=== PATIENT | female | born 1990 | race Caucasian/White ===

== ENCOUNTER → 2017-10-20 09:04 | Outpatient (CLI) | payer OTHER, SELFPAY ==
[2017-10-20 10:33] LABS: Thyroid Stimulating Hormone 3.64 uIU/ml (0.358-3.740)
== END ==
PROVIDERS: Visit Provider Internal Medicine
DX: E03.9 Hypothyroidism, unspecified (principal)
CPT/HCPCS: 84443

== ENCOUNTER → 2017-11-22 16:06 | Outpatient (CLI) | payer OTHER, SELFPAY ==
[2017-11-22 16:31] LABS: Basophils # 0.1 K/mm3 (0-0.2); Basophils % 0.9 % (0.1-2.0); Eosinophils # 0.2 K/mm3 (0.0-0.4); Hematocrit 40.8 % (37.0-47.0); Hemoglobin 13.7 g/dL (12.2-16.2); Lymphocytes # 3.4 K/mm3 (0.7-4.5); Mean Corpuscular HGB Conc 33.6 g/dL (31.8-35.4); Mean Corpuscular Hemoglobin 30.2 pg (27.0-31.2); Mean Corpuscular Volume 89.8 fl (81-99); Mean Platelet Volume 7.3 fl (7.4-10.4); Monocytes # 0.4 K/mm3 (0.1-1.0); Monocytes % 3.5 % (1.7-9.3); Neutrophils # 6.3 K/mm3 (1.8-7.8); Neutrophils % 60.5 % (37.0-80.0); Platelet Count 312 K/mm3 (142-424); Red Blood Count 4.54 M/mm3 (4.20-5.40); Red Cell Distribution Width 12.5 % (11.5-17.5); White Blood Count 10.4 K/mm3 (4.8-10.8)
[2017-11-24 15:46] LABS: HIV Screen 4th Generation wRfx Non Reactive (Non Reactive); Hepatitis B Surface Antigen Negative (Negative); Hepatitis C Antibody <0.1 s/co ratio (0.0-0.9); Rubella Antibodies, IgG 8.65 index (Immune >0.99)
[2017-11-24 15:47] LABS: Rapid Plasma Reagin Ab Titer Non Reactive (NonRea<1:1)
== END ==
PROVIDERS: Family Provider Internal Medicine; PCP Internal Medicine; Visit Provider Nurse Practitioner Obstetrics & Gynecology
DX: Z34.90 Encounter for supervision of normal pregnancy, unspecified, unspecified trimester (principal)
CPT/HCPCS: 36415; 85025; 86592; 86703; 86762; 86850; 87340; 87380; G0432

== ENCOUNTER → 2017-12-02 15:16 | Outpatient (CLI) | payer OTHER, SELFPAY ==
--- NOTE | 2017-12-02 15:19 | US_ITS ---
US OB transvaginal COMPARISON: Ultrasound previous 03/01/2015 HISTORY: Early , for dates TECHNIQUE: Transvaginal imaging FINDINGS: There is a single intrauterine gestation with the crown-rump length measuring 2.78 cm equaling 19 weeks and 5 days. The heart rate is 1 50 bpm. The sac is identified measuring 0.62 cm. The amnion and chorion are identified. The left ovary is normal size with couple tiny follicular cysts noted. The right ovary is normal in size and shows homogeneous echogenicity. There is no cul-de-sac fluid noted. IMPRESSION: Early viable intrauterine gestation proximal age 19 weeks and 4 days
== END ==
PROVIDERS: Family Provider Internal Medicine; PCP Internal Medicine; Visit Provider Nurse Practitioner Obstetrics & Gynecology
DX: O26.841 Uterine size-date discrepancy, first trimester (principal)
CPT/HCPCS: 76830

== ENCOUNTER → 2018-02-14 12:32 | Outpatient (CLI) | payer OTHER, SELFPAY ==
--- NOTE | 2018-02-14 | US_ITS ---
US OB /maternal detail: INDICATION: ITS.REASON: ANATOMY SCAN ORDERING PHYSICIAN: Sukhjinder Salgado MD PATIENT AGE: 27 years TECHNIQUE: ultrasound transabdominal scanning. COMPARISON: No previous relevant studies. FINDINGS: Single viable intrauterine gestation. Breech position. Placenta: Anterior placenta grade 1. There is average amount fluid. The cervix appears satisfactory. Closed and measuring 3 cm in length. Complete survey performed and was unremarkable on the submitted images as in PACS. No discrete anomalies identified on survey imaging by technologist. Active fetus. Three-vessel cord with satisfactory umbilical cord insertion. 4- chamber heart noted. Survey of brain & ventricles unremarkable. Face and neck survey unremarkable. Diaphragm and chest views unremarkable. Abdomen: Both kidneys noted and unremarkable. Stomach noted and satisfactory. Spine: Survey of the spine satisfactory with no anomalies identified nor imaged. Both arms and legs noted. Amniotic Fluid: Adequate. Maternal adnexa: No significant findings. Measurements: Average ultrasound age 20w4d. Gestational Age 19w4d. Estimated due date by ultrasound age 1106/30/2018. Estimated weight 349 grams. This is 87th percentile based on the established due date of 07/03/2018 BPD = 21w0d OFD = 21w4d HC = 20w4d AC = 20w4d FL = 20w1d Heart Rate = 149 bpm Cerebellum = 20w4d Humerus = 20w2d HC/AC is 1.18 (1.09-1.26). CI is 76% (70-86%). FL/BPD is 66%. FL/AC is 21%. IMPRESSION: Single live fetus in breech presentation with an average ultrasound age of 20 weeks 4 days. No obvious anomalies. All parameters correlate. Please see above for detail
== END ==
PROVIDERS: Family Provider Internal Medicine; PCP Internal Medicine; Visit Provider Nurse Practitioner Obstetrics & Gynecology
DX: Z36.0 Encounter for antenatal screening for chromosomal anomalies (principal)
CPT/HCPCS: 76811

== ENCOUNTER → 2018-06-07 16:56 | Outpatient (REF) | payer OTHER, SELFPAY | LOC: LAB 16:56 | PROVIDERS: Visit Provider Nurse Practitioner Obstetrics & Gynecology | DX: Z34.90 Encounter for supervision of normal pregnancy, unspecified, unspecified trimester (principal) | CPT/HCPCS: 86403 ==

== ENCOUNTER 2018-07-04 05:06 | Inpatient (IN) ==
[2018-07-04 05:37] LABS: Basophils # 0.1 K/mm3 (0-0.2); Basophils % 0.4 % (0.1-2.0); Eosinophils # 0.2 K/mm3 (0.0-0.4); Eosinophils % 1.8 % (0.1-12.0); Hematocrit 37.9 % (37.0-47.0); Hemoglobin 12.1 g/dL (12.2-16.2); Lymphocytes # 2.3 K/mm3 (0.7-4.5); Lymphocytes % 22.2 K/mm3 (10-50); Mean Corpuscular HGB Conc 31.9 g/dL (31.8-35.4); Mean Corpuscular Hemoglobin 29.4 pg (27.0-31.2); Mean Corpuscular Volume 92.1 fl (81-99); Mean Platelet Volume 8.2 fl (7.4-10.4); Monocytes # 0.6 K/mm3 (0.1-1.0); Monocytes % 5.2 % (1.7-9.3); Neutrophils # 7.4 K/mm3 (1.8-7.8); Neutrophils % 70.3 % (37.0-80.0); Platelet Count 212 K/mm3 (142-424); Red Blood Count 4.11 M/mm3 (4.20-5.40); Red Cell Distribution Width 13.6 % (11.5-17.5); White Blood Count 10.5 K/mm3 (4.8-10.8)
--- NOTE | 2018-07-04 09:22 | Progress Note ---
Labor Note - Subjective: Date: 07/04/18 Time: 07:20 regular contraction - Objective: NST:: Reactive Contractions:: every 2-3 minutes Cervical Dilation:: 4 Effacement:: 90% Station: -1 Membranes: artificially ruptured - Fetus: Monitoring?: Yes monitoring type:: Internal and External Comment:: I applied a scalp clip - Assessment: Labor progressing?: Yes Cephalopelvic disproportion?: No Patient Problems: All Active Problems (Acute) - Plan: Anesthesia for epidural?: Yes Continue to labor down?: Yes Plan for ?: No Continue to monitor?: Yes Start pushing?: No
--- NOTE | 2018-07-04 09:23 | Progress Note ---
Labor Note - Subjective: Date: 07/04/18 Time: 09:22 regular contraction - Objective: NST:: Reactive Contractions:: every 2-3 minutes Cervical Dilation:: 5-6 Effacement:: 90% Station: -1 Membranes: artificially ruptured - Fetus: Monitoring?: Yes monitoring type:: Internal and External - Assessment: Labor progressing?: Yes Cephalopelvic disproportion?: No Patient Problems: All Active Problems (Acute) - Plan: Anesthesia for epidural?: Yes Continue to labor down?: Yes Plan for ?: No Continue to monitor?: Yes Start pushing?: No
--- NOTE | 2018-07-04 09:24 | History & Physical Report ---
OB - H&P: HPI Antepartum - History of Present Illness Chief complaint: Postdates History of present illness: She is a 28-year-old 2 para 1 at 40+ weeks gestational age. She was found to be 3-4 cm in my office and as result of that she was offered augmentation of labor. - History of Present Criteria for establishing EDC:: LMP confirmed by 1st trimester US care: good care Ultrasounds: normal 1st trimester US, normal mid trimester US Obstetrical complications: none Medical complications: none [facility] History I have reviewed the patient's past medical history: Yes Medical History: Denies:: Anxiety, Depression, Diabetes Mellitus Type 1, Hyperlipidemia, Hypertension, Migraine, MRSA, Seizures Laterality Cases: Bilateral: Tonsillectomy Other Surgeries: No: Amputation: No Fractures: No - *Social History Smoking Status: Never smoker Alcohol Intake: never Substance Use Type: denies use - Psychiatric History Pschychiatric History:: Denies:: Anxiety, Depression *Family Hx:: Cancer, Diabetes, Heart Attack, Thyroid Disorder, Stroke, Hypertension, Hyperlipidemia, Coronary Artery Disease Para: 1 Review of Systems - Review of Systems Review of systems:: pertinent systems reviewed and negative unless documented below Meds Home Medications Medication Instructions Recorded Confirmed Type levothyroxine 50 mcg tablet 50 mcg PO ONCE 11/22/17 07/04/18 History vitamin-ferrous sulfate 1 tab PO DAILY 11/22/17 07/04/18 History 27 mg iron-folic acid 0.8 mg tablet ferrous sulfate 325 mg (65 mg 325 mg PO DAILY tab 03/21/18 07/04/18 History iron) tablet Allergies Allergy/AdvReac Type Severity Reaction Status Date / Time No Known Allergies Allergy Verified 06/28/18 15:05 OB - H&P: Exam - Constitutional no acute distress - Routine HEENT Exam Head: Present: normocephalic Eye: Present: EOMI, PERRL ENT: Present: mucous membranes moist - Routine Neck Exam Present: supple, full ROM - Routine Respiratory Exam Absent: accessory muscle use (good air entry bilaterally), respiratory distress, wheezes, crackles - Routine Cardiovascular Exam Present: RRR. Absent: murmur - Routine Abdominal Exam Present: soft, normoactive bowel sounds. Absent: tenderness, distended, guarding - Routine Rectal Exam Patient deferred: visual exam, digital exam - Routine Exam Patient deferred: external exam, groin exam, perineal exam - Routine Extremities Exam Present: full ROM. Absent: cyanosis, edema - Routine Skin Exam Present: intact. Absent: cyanosis - Routine Neurological Exam Present: alert, oriented X3 - Routine Psychiatric Exam Present: normal affect OB - Results - Labs Labs: Short CBC 07/04/18 Range/Units 05:30 WBC 10.5 (4.8-10.8) K/mm3 Hgb 12.1 L (12.2-16.2) g/dL Hct 37.9 (37.0-47.0) % Plt Count 212 (142-424) K/mm3 OB - A/P Antepartum (1) Normal delivery Current visit: Yes Status: Acute (2) Post-term , 40-42 weeks of gestation Current visit: Yes Status: Acute - Additional Plan Planning to breastfeed?: Yes Plan: other Additional Information:: She is postdates and we have started her on IV oxytocin and had her membranes ruptured. We expect a vaginal delivery.
[2018-07-04 09:38] LABS: Microscopic, Urine URINE MICROSCOPIC (MICROSCOPIC)
[2018-07-04 09:50] LABS: Appearance,Urine CLEAR (Clear); Bilirubin,Urine Negative (Negative); Blood, Urine Negative (Negative); Color,Urine YELLOW (Yellow); Glucose,Urine (UA) Negative (Negative); Ketones,Urine Negative (Negative); Leukocyte Esterase,Urine Negative (Negative); Protein,Urine Negative (Negative); Urobilinogen,Urine 0.2 EU/dl (0.2)
[2018-07-04 09:56] LABS: Bacteria,Urine Trace /lpf; Squamous Epithelial Cell,Urine Occasional #/hpf (0-5)
--- NOTE | 2018-07-04 11:40 | Progress Note ---
[facility] Anesthesia Checklist - Patient Identification Patient Identification: Arm Band, Verbal (Name & ) - Structural Data Admitted From: Home Planned Operative Procedure/s: Labor Epidural Consent for Planned Operative Procedure(s) Verified: Yes Verified Documents: Surgical Consent, History and Physical - NPO Status Verified Time NPO: 00:00 - Chart Verification Results Verified: CBC - Additional verifications Patient : Yes Anesthesia Reactions: No - Airway Assessment C-Spine Mobility Assessed: Yes TMJ Mobility Assessed: Yes Dentition: Good Dentition - Neurological Assessment Level of Consciousness: Awake Hx Seizures: No Numbness or tingling in extremities: No - Anesthesia Plan Anesthesia Risk discussed: Yes Anesthesia Plan: Verified ASA Class: II Anesthesia Type: Epidural [facility] History I have reviewed the patient's past medical history: Yes Medical History: Denies:: Anxiety, Depression, Diabetes Mellitus Type 1, Hyperlipidemia, Hypertension, Migraine, MRSA, Seizures Laterality Cases: Bilateral: Tonsillectomy Other Surgeries: No: Amputation: No Fractures: No - *Social History Smoking Status: Never smoker Alcohol Intake: never Substance Use Type: denies use - Psychiatric History Pschychiatric History:: Denies:: Anxiety, Depression *Family Hx:: Cancer, Diabetes, Heart Attack, Thyroid Disorder, Stroke, Hypertension, Hyperlipidemia, Coronary Artery Disease Para: 1
--- NOTE | 2018-07-04 12:19 | Procedure Note ---
- Delivery Note Delivery Date:: 07/04/18 Delivery Time:: 11:58 Anesthesia Type: Epidural Was labor medically induced?: No Infant delivered prior to 39 weeks?: No Gender: Female at 1 minute: 9 at 5 minutes: 9 LAC or MLE?: LAC (Second-degree perineal laceration) Delivery Procedure:: She is a 28-year-old 2 para 1 at 40 and 1 weeks gestational age. She was having a few contractions and was found to be 3-4 cm dilated my office. As result of that we elected to augment her labor postdates. She was started on IV oxytocin and had her membranes ruptured. Under labor epidural she progressed to full dilation and delivered spontaneously a live born female child at 11:58 AM on the morning of July 04, 2018. On deliver the head the rest the body rapidly delivered. There was a cord wrapped around the neck and this was easily reduced. We allowed the cord to continue to palpate and the baby cried spontaneously. The oropharynx and nasopharynx were bulb suctioned. We then doubly clamped the cord and cut the cord. The baby was then placed on the mother's abdomen for further care. The nurses assigned Apgars of 9 at 1 minute and 9 at 5 minutes. We then obtained cord blood as well as cord pH. Using gentle traction on the cord and countertraction on the fundus I was able to easily deliver the placenta intact. Had a normal three-vessel cord. She had a second-degree perineal laceration is repaired with interrupted 3-0 Vicryl Rapide suture to the superficial tissues and 2-0 Vicryl suture to the deep tissues. The sphincter was intact. She has B+ blood, she is rubella immune and was group B Streptococcus negative. She plans to breast-feed. Her oyster cultivator is Dr. Hurd. Her estimated blood loss was approximately 500 cc. Placental Delivery Description: Spontaneous
[2018-07-05 06:09] LABS: Hematocrit 28.8 % (37.0-47.0); Hemoglobin 9.4 g/dL (12.2-16.2)
--- NOTE | 2018-07-05 07:57 | Discharge Summary ---
General - General Admission date:: 07/04/18 Discharge date: 07/05/18 HPI HPI: She is a 28-year-old 2 now para 2 who is 40 and 1 weeks gestational age. She was 3-4 cm in my office and as result of that we elected to augment her labor. Hospital Course Hospital Course: She was started on IV oxytocin and under labor dural progressed to full dilation. She delivered spontaneously a live born female child at 11:58 AM on the morning of July 04, 2018. Baby weighed 8 pounds 3 ounces and was 20 inches long. She had Apgars of 9 at 1 minute and 9 at 5 minutes She has done well and has remained afebrile throughout her hospitalization. She is eating and drinking and ambulating. She is breast- feeding. She had a small second-degree perineal laceration. She has B+ blood, she is rubella immune and was group B Streptococcus negative. Her wire rope sales representative is Dr. Hurd. She is discharged home to follow-up with me in approximately 2 weeks time. She will continue with her vitamins and iron. She was given the usual instructions with respect to limiting her activity, driving and sexual activity. She is just taking [id number] analgesics. Her condition on discharge is stable. Rhogam Administration: Not Indicated Objective no acute distress Results Labs on day of discharge: Labs from last 24 hours 07/05/18 07/04/18 07/04/18 06:00 12:08 09:00 Hgb 9.4 L Hct 28.8 L Cord ABG pH 7.37 Urine Color Yellow Urine Appearance Clear Urine pH 8.0 Ur Specific Buckner 1.010 Urine Protein Negative Urine Glucose (UA) Negative Urine Ketones Negative Urine Blood Negative Urine Nitrate Negative Urine Bilirubin Negative Urine Urobilinogen 0.2 Ur Leukocyte Esterase Negative Ur Squamous Epith Cells Occasional Urine Bacteria Trace DS: Diagnosis - Discharge Diagnosis (1) Normal delivery Status: Acute (2) Post-term , 40-42 weeks of gestation Status: Acute Discharge Plan - Patient Discharge Instructions ACTIVITY: No heavy lifting DIET: continue same diet Patient Instructions: Depression, Hemorrhage, Post Discharge Instructions - Follow up Plan Disposition: Home, Self-Prison Medications: Home Medications Medication Instructions Recorded Confirmed Type levothyroxine 50 mcg tablet 50 mcg PO DAILY 11/22/17 07/04/18 History vitamin-ferrous sulfate 1 tab PO DAILY 11/22/17 07/04/18 History 27 mg iron-folic acid 0.8 mg tablet ferrous sulfate 325 mg (65 mg 325 mg PO DAILY tab 03/21/18 07/04/18 History iron) tablet Prescriptions/Medication Reconciliation: Continue ferrous sulfate 325 mg (65 mg iron) tablet 325 mg PO DAILY tab levothyroxine 50 mcg tablet 50 mcg PO DAILY No Action vitamin-ferrous sulfate 27 mg iron-folic acid 0.8 mg tablet 1 tab PO DAILY
== END 2018-07-05 17:45 | disposition home or self-care (01) ==
LOC: OB 05:06
PROVIDERS: ADMIT Nurse Practitioner Obstetrics & Gynecology; ATTEND Nurse Practitioner Obstetrics & Gynecology

== ENCOUNTER → 2018-07-25 16:52 | Outpatient (CLI) | payer OTHER, SELFPAY ==
[2018-07-25 17:35] LABS: Free T4 (Free Thyroxine) 1.01 ng/dl (0.76-1.46); Thyroid Stimulating Hormone 3.13 uIU/ml (0.358-3.740)
== END ==
PROVIDERS: Visit Provider Internal Medicine
DX: J02.9 Acute pharyngitis, unspecified (principal); E03.9 Hypothyroidism, unspecified
CPT/HCPCS: 84439; 84443

== ENCOUNTER → 2019-06-15 12:50 | Outpatient (CLI) | payer OTHER, SELFPAY ==
[2019-06-15 13:51] LABS: Thyroid Stimulating Hormone 3.32 uIU/ml (0.358-3.740)
== END ==
PROVIDERS: Visit Provider Internal Medicine
DX: E03.9 Hypothyroidism, unspecified (principal)
CPT/HCPCS: 36415; 84443

== ENCOUNTER → 2020-04-18 14:22 | Outpatient (CLI) | payer OTHER, SELFPAY ==
[2020-04-18 16:53] LABS: Coronavirus 19 IgG Antibody Positive (Negative); Coronavirus 19 IgM Antibody Negative (Negative)
== END ==
PROVIDERS: Visit Provider Internal Medicine
DX: Z20.828 Contact with and (suspected) exposure to other viral communicable diseases (principal); U07.1 COVID-19
CPT/HCPCS: 86328

== ENCOUNTER → 2021-01-15 11:11 | Outpatient (CLI) | payer OTHER, SELFPAY ==
[2021-01-15 12:56] LABS: Thyroid Stimulating Hormone 2.74 uIU/mL (0.465-4.68)
== END ==
PROVIDERS: Visit Provider Internal Medicine
DX: E03.9 Hypothyroidism, unspecified (principal)
CPT/HCPCS: 84443

== ENCOUNTER → 2021-05-02 15:17 | Outpatient (CLI) | payer OTHER, SELFPAY ==
[2021-05-02 15:19] LABS: Coronavirus 19, PCR Not Detected (NotDetected); Influenza A, PCR Not Detected (NotDetected); Influenza B, PCR Not Detected (NotDetected)
== END ==
PROVIDERS: Visit Provider Internal Medicine
DX: Z20.822 Contact with and (suspected) exposure to COVID-19 (principal)
CPT/HCPCS: U0003

== ENCOUNTER → 2021-07-14 14:28 | Outpatient (CLI) | payer OTHER, SELFPAY ==
[2021-07-14 14:31] LABS: Coronavirus 19, PCR Not Detected (NotDetected); Influenza A, PCR Not Detected (NotDetected); Influenza B, PCR Not Detected (NotDetected)
== END ==
PROVIDERS: Visit Provider Internal Medicine
DX: Z20.822 Contact with and (suspected) exposure to COVID-19 (principal)
CPT/HCPCS: C9803; U0003; U0005

== ENCOUNTER → 2021-12-03 09:58 | Outpatient (CLI) | payer OTHER, SELFPAY ==
[2021-12-03 10:22] LABS: Coronavirus 19, PCR Not Detected (NotDetected); Influenza B, PCR Not Detected (NotDetected)
[2021-12-03 10:56] LABS: Influenza A, PCR Detected (NotDetected)
== END ==
PROVIDERS: PCP Internal Medicine; Visit Provider Internal Medicine
DX: Z11.52 Encounter for screening for COVID-19 (principal)
CPT/HCPCS: C9803; U0003; U0005

== ENCOUNTER 2021-12-05 09:58 | Emergency (ER) | payer OTHER, SELFPAY ==
[2021-12-05 10:37] VITALS: BP 123/74; PULSE 83; RESP 18; TEMP 37.1; O2SAT 98; BMI 22.1
--- NOTE | 2021-12-05 10:52 | HMH.EDUTC ---
[facility] [place] Disposition Clinical Impression: Influenza Disposition: Home, Self-Care Condition on Discharge: Good Instructions: Influenza, DI for Influenza -- Adult, Sore Throat Additional Instructions: ? Continue Tamiflu today if you are going to take it. Discussed risk and possible benefits. ?? Lots of rest ? Increase Fluids water, Gatorade, powerade, pedialyte,if infant/toddler/child ? Alternate Tylenol and / or ibuprofen as discussed for fever, aches, chills Follow up IMMEDIATELY with your family doctor for new or worsening Symptoms OR no noticeable improvement over the next 48-72 hours, 911 for difficulty or breathing ? You or your child area contagious until no fever, aches, chills for 24 hours with medication for symptoms ? Help Prevent the spread of influenza: ? Wash your hands often. Use soap and water. Wash your hands after you use the bathroom, change a child's diapers, or sneeze. Wash your hands before you prepare or eat food. Use gel hand cleanser that has 60% alcohol, when soap and water are not available. Do not touch your eyes, nose, or mouth unless you have washed your hands first. ? Cover your mouth when you sneeze or cough. Cough into a tissue or the bend of your arm. If you use a tissue, throw it away immediately and wash your hands. ? Clean shared items with a germ-killing steam cleaner. Clean table surfaces, doorknobs, and light switches. Do not share towels, silverware, and dishes with people who are sick. Wash bed sheets, towels, silverware, and dishes with soap and water. ? Wear a mask over your mouth and nose if you are sick. The face mask may help protect others from becoming infected with the flu. Wear the mask when in common areas of your home or if you seek care with a healthcare provider. ? Stay away from others if you are sick. Stay at home until 24 hours after your fever and symptoms are gone. Prescriptions: Brompheniramine/Pseudoephed/Dm [Bromfed Dm Cough Syrup] 5 - 10 ml PO Q4-6H PRN #200 ml PRN Reason: Cough Transmission Status: Pending to [facility] #[id number] Referrals: Shahid Wahl [Primary Care Provider] - As needed Time of Disposition: 11:26 Medical Decision Making - Laurent Inquiry Pt receiving controlled substance: No Laurent was queried for this patient: No Vital Signs: 12/05/21 10:37 Temperature 98.7 F Temperature Source Oral Pulse Rate [Left] 83 Respiratory Rate 18 Blood Pressure [Right Arm] 123/74 Blood Pressure Mean [Right Arm] 90 02 Sat by Pulse Oximetry 98 - Lab Data Lab results reviewed: Yes: I reviewed the patient's lab results. Orders (Tests/Meds): ORDERS Category Date Time Status Rapid Strep Scrn Group A [Strep Scrn Group A (Rapid)] Lab 12/05/21 10:55 Received Stat [facility] [place] HPI - General Stated complaint: positive for flu Time Seen by Provider: 12/05/21 10:52 Mode of Arrival: Ambulatory Source of Information: Patient Limitations: No Limitations Description of Symptoms (Recalled from Triage Doc. by RN): pt tested positive for flu A on 11/30. pt c/o a R ear ache, worsening sore throat and a cough with no improvement. pt tested negative for covid on 12/03. HEENT Symptoms (Recalled from RN notes): Yes Resp Symptoms (Recalled from RN notes): No Skin Symptoms (Recalled from RN notes): No MS Symptoms (Recalled from RN notes): No Functional Status (Recalled from RN notes): wnl - History of Present Illness Provider Complaint: Latrellt states that she was dx with flu a couple days ago but since then she has been having sore throat and cough and pain in her right ear States that she was worried that she may have caught something else so she came in to get checked - Related Data Home Medications Medication Instructions Recorded Confirmed Levothyroxine Sodium 75 mcg PO DAILY 10/12/19 10/12/19 [Levothyroxine 75mcg (0.075mg) Tab] Previous Rx's Medication Instructions Recorded Azithromycin [Z-Adi 250mg Tab*] 250 mg PO UD DOSE PK #6 tab 10/12/19 Fl[facility]
[2021-12-05 11:22] LABS: Strep Scrn Group A (Rapid) Negative (Negative)
[2021-12-05 11:42] VITALS: BP 123/74; PULSE 83; RESP 18; TEMP 37.1
== END 2021-12-05 11:43 | disposition home or self-care (01) ==
PROVIDERS: Emergency Provider Nurse Practitioner; PCP Internal Medicine
DX: J10.1 Influenza due to other identified influenza virus with other respiratory manifestations (principal)
CPT/HCPCS: 87430; 99212; G0463

== ENCOUNTER → 2022-01-06 07:35 | Outpatient (CLI) | payer SELFPAY | PROVIDERS: Visit Provider Nurse Practitioner | DX: Z11.52 Encounter for screening for COVID-19 (principal) ==

== ENCOUNTER → 2022-09-01 09:10 | Outpatient (CLI) | payer OTHER, SELFPAY ==
[2022-09-01 09:28] LABS: Basophils # 0.1 K/mm3 (0-0.2); Basophils % 1.5 % (0.1-2.0); Eosinophils # 0.4 K/mm3 (0.0-0.4); Eosinophils % 5.1 % (0.1-12.0); Hematocrit 43.1 % (37.0-47.0); Hemoglobin 13.5 g/dL (12.2-16.2); Lymphocytes # 2.8 K/mm3 (0.7-4.5); Lymphocytes % 34.9 % (10-50); Mean Corpuscular HGB Conc 31.4 g/dL (31.8-35.4); Mean Corpuscular Hemoglobin 31.2 pg (27.0-31.2); Mean Corpuscular Volume 99.3 fl (81-99); Mean Platelet Volume 7.8 fl (7.4-10.4); Monocytes # 0.4 K/mm3 (0.1-1.0); Monocytes % 4.6 % (1.7-9.3); Neutrophils # 4.3 K/mm3 (1.8-7.8); Neutrophils % 53.9 % (37.0-80.0); Platelet Count 585 K/mm3 (142-424); Red Blood Count 4.34 M/mm3 (4.20-5.40); Red Cell Distribution Width 13.2 % (11.5-17.5)
[2022-09-01 10:17] LABS: Chloride 101 mmol/L (98-107); Potassium 4.6 mmoL/L (3.5-5.1); Sodium 138 mmol/L (136-145)
[2022-09-01 10:19] LABS: Alanine Aminotransferase 11 U/L (12-78); Alkaline Phosphatase 54 U/L (38-126); Anion Gap 11.6 mEq/L (5-15); Aspartate Amino Transferase 21 U/L (14-36); Bilirubin,Total 0.6 mg/dl (0.2-1.3); Blood Urea Nitrogen 13 mg/dl (7-17); Carbon Dioxide 30 mmol/L (22.0-30.0); Estimated Glomerular Filt Rate 72 ml/min (>60); GFR (African American) 87 ML/MIN (>60)
[2022-09-01 10:20] LABS: Albumin Level 4.3 g/dl (3.5-5.0); Calcium 9.2 mg/dl (8.4-10.2); Globulin 2.2 g/dL (1.3-3.2); Glucose 92 mg/dl (74-100); Total Protein,Serum 6.5 g/dl (6.3-8.2)
[2022-09-01 10:50] LABS: Thyroid Stimulating Hormone 2.38 uIU/mL (0.465-4.68)
== END ==
PROVIDERS: Nurse Practitioner Family; PCP Internal Medicine Adolescent Medicine; Visit Provider Orthopaedic Surgery
DX: R79.9 Abnormal finding of blood chemistry, unspecified (principal)
CPT/HCPCS: 36415; 80053; 84443; 85025

== ENCOUNTER → 2023-02-05 07:29 | Outpatient (CLI) | payer OTHER, SELFPAY ==
[2023-02-05 09:13] LABS: Basophils # 0.1 K/mm3 (0-0.2); Basophils % 0.8 % (0.1-2.0); Eosinophils # 0.4 K/mm3 (0.0-0.4); Eosinophils % 4.2 % (0.1-12.0); Hematocrit 41.2 % (37.0-47.0); Lymphocytes # 3.4 K/mm3 (0.7-4.5); Lymphocytes % 41.6 % (10-50); Mean Corpuscular HGB Conc 31.6 g/dL (31.8-35.4); Mean Corpuscular Hemoglobin 30.6 pg (27.0-31.2); Mean Corpuscular Volume 96.6 fl (81-99); Monocytes # 0.5 K/mm3 (0.1-1.0); Monocytes % 6.2 % (1.7-9.3); Neutrophils # 3.8 K/mm3 (1.8-7.8); Neutrophils % 47.1 % (37.0-80.0); Platelet Count 513 K/mm3 (142-424); Red Blood Count 4.26 M/mm3 (4.20-5.40); Red Cell Distribution Width 12.5 % (11.5-17.5); White Blood Count 8.1 K/mm3 (4.8-10.8)
[2023-02-05 09:46] LABS: Alanine Aminotransferase 13 U/L (12-78); Albumin Level 4.3 g/dl (3.5-5.0); Albumin/Globulin Ratio 1.9 (1.1-1.8); Alkaline Phosphatase 50 U/L (38-126); Anion Gap 12.5 mEq/L (5-15); Aspartate Amino Transferase 25 U/L (14-36); Bilirubin,Total 0.5 mg/dl (0.2-1.3); Blood Urea Nitrogen 16 mg/dl (7-17); Carbon Dioxide 30 mmol/L (22.0-30.0); Chloride 101 mmol/L (98-107); Chol/HDL Ratio 2.1 (1-3.5); Cholesterol 155 mg/dl (140-200); Estimated Glomerular Filt Rate 83 ml/min (>60); GFR (African American) 100 ML/MIN (>60); Globulin 2.3 g/dL (1.3-3.2); Glucose 91 mg/dl (74-100); HDL Cholesterol 74 mg/dl (40-60); Potassium 4.5 mmoL/L (3.5-5.1); Sodium 139 mmol/L (136-145); Total Protein,Serum 6.6 g/dl (6.3-8.2); Triglycerides 82 mg/dl (30-150); VLDL Cholesterol 16 mg/dL (0-40)
[2023-02-05 09:57] LABS: Direct LDL Cholesterol 62.35 mg/dL (100-129)
[2023-02-05 10:05] LABS: 25-OH Vitamin D, Total 41.6 ng/mL (30-100)
[2023-02-05 10:16] LABS: Thyroid Stimulating Hormone 1.48 uIU/mL (0.465-4.68)
[2023-02-05 10:35] LABS: Vitamin B12 565 pg/mL (239-931)
== END ==
PROVIDERS: PCP Nurse Practitioner Family; Visit Provider Nurse Practitioner Family
DX: Z00.00 Encounter for general adult medical examination without abnormal findings (principal); E03.9 Hypothyroidism, unspecified; R53.83 Other fatigue; Q89.01 Asplenia (congenital)
CPT/HCPCS: 36415; 80053; 80061; 82306; 82607; 84443; 85025

== ENCOUNTER 2025-02-12 07:55 | Outpatient (CLI) | payer OTHER, SELFPAY ==
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
--- OUTSIDE RECORDS SUMMARY | 2025-02-12 07:58 | XMS_ITS | Encounter Summary ---
Author Organization [facility] Address [address] [place] [address] Care Team Providers Care Women'S Lacrosse Coach Name Role Phone Shahid Wahl MD Primary Care Provider [phone] Odell Carpio MD Primary Care Provider [phone] Encounter Details Date Type Department Care Team (Late st Contact Info) Description 02/18/2022 Lab Requisition [facility] [address] [place] [address] Shena Gutierres MD [address] [facility] 7th [facility] [address] [place] [address] Encounter for general adult medical examination without abnormal findings Social History Tobacco Use Types Packs/Day Years Used Date Smoking Tobacco: Never Assessed Comments Unknown Sex and Gender Information Value Date Recorded Sex Assigned at Not on file Legal Sex Female 2:12 PM EDT Gender Identity Not on file Sexual Orientation Not on file COVID-19 Exposure Response Date Recorded In the last 10 days, have yo u been in contact with someone who was confirmed or suspected to have Coronavirus/COVID-19? No / Unsure 02/21/2022 4:48 PM EDT documented as of this encounter Functional Status * Calculated C-SSRS Risk Score (Lifetime/Recent) Answer Date of Assessment Author No Risk Indicated 02/21/2022 8:00 PM EDT Ly Polo RN * Question Answer Date of Assessment Author 1. Wish to be (Past 1 Month) No 022 8:00 PM EDT Ly Polo RN 2. Non-Specific Active Suici oscar Thoughts (Past 1 Month) No 02/21/2022 8:00 PM EDT Ly Polo, RN 6. Suicidal Behavior (Lifetime) No 8:00 PM EDT Ly Polo RN documented as of this encounter Plan of Treatment Not on file documented as of this encounter Procedures Procedure Name Priority Date/Time Associated Diagnosis Comments MULTI DRUG RESISTANCE TEST Routine 02/18/2022 7:00 AM EDT Encounter for general adult medical examination without abnormal findings documented in this encounter Results * Multi Drug Resistance Test (02/18/2022 7:00 AM EDT) Culture No growth at day 1 02/19/2022 2:51 PM EDT [facility] Swab (Nares and Keysha Rectal) 02/18/2022 7:00 AM EDT 02/18/2022 7:04 AM EDT us Shena Sweet MD LAB MICROBIOLOGY - GENERAL ORDERABLES Final Result [facility] [address] [place] [address] documented in this encounter Visit Diagnoses Diagnosis Encounter for general adult medical examination without abnormal findings documented in this encounter Care Teams Women'S Lacrosse Coach Relationship Specialty Start Date End Date Shahid Wahl MD [address] [place] [address] PCP - General 01/15/22 03/16/22 Odell Carpio MD [address] [place] [address] PCP - General Internal Medicine 03/17/22 documented as of this encounter
[2025-02-12 08:13] LABS: Basophils # 0.1 K/mm3 (0-0.2); Basophils % 1.4 % (0.1-2.0); Eosinophils # 0.4 Kmm3 (0.0-0.4); Eosinophils % 3.7 % (0.1-12.0); Hemoglobin 13.1 g/dL (12.2-16.2); Immature Granulocytes # 0.05 10^3uL; Immature Granulocytes % 0.5 %; Lymphocytes % 30.3 % (10-50); Mean Corpuscular HGB Conc 32.8 g/dL (31.8-35.4); Mean Corpuscular Volume 94.8 fl (81-99); Mean Platelet Volume 9.3 fl (7.4-10.4); Monocytes # 0.8 K/mm3 (0.1-1.0); Monocytes % 8.1 % (1.7-9.3); Neutrophils # 5.5 K/mm3 (1.8-7.8); Nucleated Red Blood Cells # 0 10^3/uL; Nucleated Red Blood Cells % 0 %; Platelet Count 473 K/mm3 (142-424); Red Blood Count 4.22 M/mm3 (4.20-5.40); Red Cell Distribution Width 12.9 % (11.5-17.5); Red Cell Distribution Width-SD 44.5 fL; White Blood Count 9.9 K/mm3 (4.8-10.8)
[2025-02-12 09:39] LABS: Albumin Level 4.1 g/dl (3.5-5.0); Chloride 103 mmol/L (98-107); Sodium 137 mmol/L (136-145)
[2025-02-12 09:40] LABS: Potassium 4.7 mmoL/L (3.5-5.1)
[2025-02-12 09:42] LABS: Alanine Aminotransferase 10 U/L (12-78); Albumin/Globulin Ratio 1.8 (1.1-1.8); Anion Gap 8.7 mEq/L (5-15); Aspartate Amino Transferase 21 U/L (14-36); Blood Urea Nitrogen 14 mg/dl (7-17); Carbon Dioxide 30 mmol/L (22.0-30.0); Estimated Glomerular Filt Rate 82 ml/min (>60); GFR (African American) 99 ML/MIN (>60); Globulin 2.3 g/dL (1.3-3.2); Total Protein,Serum 6.4 g/dl (6.3-8.2)
[2025-02-12 09:43] LABS: Alkaline Phosphatase 52 U/L (38-126); Bilirubin,Total 0.5 mg/dl (0.2-1.3); Calcium 9.2 mg/dl (8.4-10.2); Chol/HDL Ratio 2.3 (1-3.5); Cholesterol 180 mg/dl (140-200); Glucose 90 mg/dl (74-100); HDL Cholesterol 80 mg/dl (40-60); Triglycerides 75 mg/dl (30-150); VLDL Cholesterol 15 mg/dL (0-40)
[2025-02-12 09:54] LABS: Direct LDL Cholesterol 67.87 mg/dL (100-129)
[2025-02-12 10:12] LABS: Thyroid Stimulating Hormone 3.89 uIU/mL (0.465-4.68)
== END 2025-02-12 23:59 | disposition home or self-care (01) ==
LOC: LAB 07:56
PROVIDERS: PCP Nurse Practitioner Family; Visit Provider Nurse Practitioner Family
DX: Z00.00 Encounter for general adult medical examination without abnormal findings (principal); E03.9 Hypothyroidism, unspecified; Q89.01 Asplenia (congenital)
CPT/HCPCS: 36415; 80053; 80061; 84443; 85025

== ENCOUNTER 2025-08-25 09:23 | Outpatient (CLI) | payer OTHER, SELFPAY ==
[2025-08-25 20:19] LABS: Coronavirus 19, PCR Not Detected (NotDetected); Influenza A, PCR Not Detected (NotDetected); Influenza B, PCR Not Detected (NotDetected)
--- OUTSIDE RECORDS SUMMARY | 2025-08-27 09:36 | XMS_ITS | Encounter Summary ---
Author Organization [facility] Address [address] [place] [address] Care Team Providers Care Equipment Operat0R Name Role Phone Shahid Wahl MD Primary Care Provider [phone] Odell Carpio MD Primary Care Provider [phone] Encounter Details Date Type Department Care Team (Late st Contact Info) Description 02/18/2022 Lab Requisition [facility] [address] [place] [address] Shena Gutierres MD [address] [facility] 7th [facility] [address] [place] [address] Encounter for general adult medical [...] PM EDT documented as of this encounter Plan of [...] at day 1 02/19/2022 2:51 PM EDT HEALTH[facility]ARE [facility] Swab (Nares and Keysha Rectal) 02/18/2022 7:00 AM EDT 02/18/2022 7:04 AM EDT Shena Sweet MD LAB MICROBIOLOGY - GENERAL ORDERABLES Final Result Performing Organization Address City/State/[facility] Co de Phone Number HEALTHCARE LAB [address] [place] [address] documented in this encounter Visit Diagnoses Diagnosis Encounter for general adult medical examination without abnormal findings documented in this encounter Care Teams Equipment Operat0R Relationship Specialty Start Date End Date Shahid Wahl MD [address] [place], [place] [address] [address] [place] [address] PCP - General 01/15/22 03/16/22 Odell Carpio MD [facility] [address] PCP - General Internal Medicine 03/17/22 documented as of this encounter
--- OUTSIDE RECORDS SUMMARY | 2025-08-27 09:36 | XMS_ITS | Clinical Summary ---
Author Organization [facility] Address [address] [place] [address] Care Team Providers Care Security Operations Manager Name Role Phone Odell Carpio MD Primary Care Provider [phone] Allergies No known active allergies Medications Multiple [...] (02/15/2022): Added automatically from request for surgery [id number] Immunizations Immunization Administration Dates Next Due Hib [...] Health Maintenance Due Date Last Done Comments [facility]-Depression Screening 1989 [facility]-Infant/Child/Adol SDOH Screenings 1989 [facility]-Varicella Vaccines (1 of 2 - 13+ 2-dose series) 2002 [facility]- SDOH Screenings 2007 [facility]-Adult SDOH Screenings 2007 [facility]-DTaP,Tdap,and Td Vaccine s (1 - Tdap) 2008 [facility]-Hepatitis B Vaccines (1 of 3 - 19+ 3-dose series) 2008 [facility]-Pap Smear 2010 [facility]-Cervical Cancer Screening 2019 [facility]-HPV/Cotest 2019 [id number] Vaccine (1 - 20 25-26 season) 2025 [facility]-Influenza Vaccine (#1) 2025 [facility]-Zoster Vaccines (1 of 2) 2039 [facility]-HIB Vaccines Aged Out 02/18/2022 No longer e ligible based on patient's age to complete this topic [facility]-Pneumococcal Vaccine: Pediatrics (0 to 5 Years) and At-Risk Patients (6 to 49 Years) Aged Out 02/18/2022 No long er eligible based on patient's age to complete this topic HPV Vaccines (No Doses Required) Completed [facility]-Hepatitis A Vaccines Aged Out No longer eligible based on patient's age to complete this topic [facility]-IPV Vaccines Aged Out No longer e ligible based on patient's age to complete this topic [facility]-Rotavirus Vaccines Aged Out No lo nger eligible based on patient's age to complete this topic Medical Devices Implanted Type Area Health Assistant Device Identifier Shelf Expiration Date Model / Serial / Lot Plate Matrixrib 17 Hole Lt Rib 6&7 - [id number] Implanted:Qty: 2 on 02/16/2022 by Mg Goode MD at [id number] 02/16/2023 04.501 . / / Screw 2.7mm Ti Locking Self-Drill Matrixrib 8mm - [id number] Implanted:Qty: 40 on 02/16/2022 by Mg Goode MD at [id number] 02/16/2023 04.501 .. / / Plate Matrixrib 16 Hole Lt Rib 4&5 - [id number] Implanted:Qty: 2 on 02/16/2022 by Mg Goode MD at [id number] 02/16/2023 04. . / / Screw 2.7mm Ti Locking Self-Drill Matrixrib 9mm - [id number] Implanted:Qty: 5 on 02/16/2022 by Mg Goode MD at [id number] 02/16/2023 04.. 01 / / Insurance [facility] Advance Directives * Full Code (Latest Code Status on File) Date Activated Date Inactivated Comments 02/18/2022 9:50 AM 02/25/2022 3:14 PM Question Answer Comments Patient has decision-making capacity? Yes Care Teams Security Operations Manager Relationship Specialty Start Date End Date Odell Carpio MD [facility] [address] PCP - General Internal Medicine 03/17/22
== END 2025-08-25 23:59 | disposition home or self-care (01) ==
LOC: LAB.DROPOF 08-27 09:25
PROVIDERS: PCP Nurse Practitioner Family; Visit Provider Student in an Organized Health Care Education/Training Program
DX: R52 Pain, unspecified (principal)
CPT/HCPCS: 87631